=== PATIENT | male | born 1980 | race African-American/Black ===

== ENCOUNTER 2018-07-24 13:15 | Emergency (ER) | payer OTHER ==
[~2018-07-24] VITALS: Ht 177.8 cm; Wt 69.7 kg
[2018-07-24 13:17] VITALS: BP 108/71
== END 2018-07-24 14:04 | disposition home or self-care (01) ==
LOC: ED 14:00
DX: J01.00 Acute maxillary sinusitis, unspecified (principal); R09.82 Postnasal drip; F17.200 Nicotine dependence, unspecified, uncomplicated
CPT/HCPCS: 99283